=== PATIENT | female | born 1960 ===

== ENCOUNTER 2025-08-30 06:00 | Day surgery (SDC) | payer OTHER ==
[2025-08-25 13:35] VITALS: BP 119/70
[~2025-08-30] VITALS: Ht 157.5 cm; Wt 65.8 kg
[~2025-08-30 06:00] MED LIST: ATORVASTATIN CA10 MG PO; CLONAZEPAM0.5 MG PO; COZAAR25 MG PO; RESTORIL15 M1
[2025-08-30] MEDS ORDERED: POVIDONE-IODINE 118 ML BOTT TOP ONE (08:00)
[2025-08-30] MEDS ORDERED: ONDANSETRON HCL 2 MG/ML VIAL IV ONE (09:00)
[2025-08-30] MEDS ORDERED: KETOROLAC TROMETHAMINE 60 MG VIAL IM ONE (09:00)
== END 2025-08-30 14:10 | disposition home or self-care (01) ==
LOC: CIR.AMB 06:00
PROVIDERS: ATTEND Obstetrics & Gynecology
DX: N95.0 Postmenopausal bleeding (principal); N84.0 Polyp of corpus uteri; N88.2 Stricture and stenosis of cervix uteri; D25.0 Submucous leiomyoma of uterus; Z88.0 Allergy status to penicillin